=== PATIENT | female | born 1940 | race Caucasian/White ===

== ENCOUNTER 2025-02-28 16:59 | Emergency (ER) | payer BC ==
[~2025-02-28] VITALS: Ht 162.6 cm; Wt 61.0 kg
[2025-02-28 17:03] VITALS: O2SAT 99
[2025-02-28] MEDS: SODIUM CHLORIDE 0.9% 1,000 ML IV ONE (18:11)
[2025-02-28 18:15] LABS: HEMATOCRIT. 34.1 % (36.0-48.0); HEMOGLOBIN. 11.4 g/dL (12.0-16.0); MEAN PLATELET VOLUME 8.0 fl (7.4-10.4); PLATELET 182 x1000/uL (130-400); RED BLOOD CELL COUNT 3.55 mill/uL (4.2-5.4); RED CELL DISTRIBUTION WIDTH 13.0 % (11.6-14.6)
[2025-02-28 18:27] LABS: INR 1.1
[2025-02-28 18:40] LABS: TROPONIN I HIGH SENSITIVITY 139 ng/L (3.0-34)
[2025-02-28 18:52] LABS: BAND% 1.0 % (1.0-6.0); LYMPHOCYTES % MANUAL 14.0 % (20.0-60.0); MONOCYTES % MANUAL 11.0 % (2.0-8.0); NEUTROPHILS % MANUAL 74.0 % (45.0-75.0); PLATELET ESTIMATE NORMAL
[2025-02-28] MEDS: ASPIRIN 325MG EC TABLET PO ONE (19:32)
[2025-02-28 19:51] LABS: CREATININE 1.0 mg/dL (0.6-1.0); UREA NITROGEN BLOOD 19 mg/dL (9-23)
[2025-02-28 19:52] LABS: PROTEIN TOTAL 7.0 g/dL (6.0-8.3)
[2025-02-28 19:53] LABS: ASPARTATE AMINOTRANSFERASE 40 IU/L (<34); BILIRUBIN DIRECT 0.3 mg/dL (<=3.0)
[2025-02-28 19:54] LABS: BILIRUBIN TOTAL 0.9 mg/dL (0.1-1.0)
[2025-02-28 20:16] LABS: INFLUENZA TYPE A Presumptive Negative (Pres. Neg.)
[2025-02-28 20:17] LABS: INFLUENZA TYPE B Presumptive Negative (Pres. Neg.)
[2025-02-28 20:18] LABS: RESPIRATORY SYNCYTIAL VIRUS Not Detected (Not Detectd)
[2025-02-28 20:43] LABS: TROPONIN I HIGH SENSITIVITY 111 ng/L (3.0-34)
[2025-02-28] MEDS: OXYCODONE HCL 5MG TABLET PO ONE (20:53)
[2025-02-28] MEDS: LIDOCAINE 5% PATCH TOP SCH (20:53)
[2025-02-28 22:10] VITALS: BP 176/79; PULSE 94; RESP 18; TEMP 37.2; O2SAT 97
== END 2025-02-28 22:15 | disposition home or self-care (01) ==
LOC: ER 16:59 → CMPBEDREQ 23:15
DX: B34.9 Viral infection, unspecified (principal); R05.9 Cough, unspecified; R53.1 Weakness; R06.02 Shortness of breath; I11.0 Hypertensive heart disease with heart failure; I50.9 Heart failure, unspecified; Z20.822 Contact with and (suspected) exposure to COVID-19
CPT/HCPCS: 99285; 96360; 71045; 87426; 80076; 80048; 83880; 83735; 85025; 85610; 87420; 84484; 87804 ×2; 36415; 93005; J7030